=== PATIENT | male | born 1995 | race African-American/Black ===

== ENCOUNTER 2022-08-15 15:17 | Emergency (ER) | payer MEDICAID, OTHER ==
[~2022-08-15] VITALS: Ht 170.2 cm; Wt 67.1 kg
[2022-08-15 15:54] VITALS: BP 118/81
== END 2022-08-15 16:14 | disposition home or self-care (01) ==
LOC: ER 15:17
DX: S61.217A Laceration without foreign body of left little finger without damage to nail, initial encounter (principal); W26.0XXA Contact with knife, initial encounter; Y93.89 Activity, other specified; Y92.89 Other specified places as the place of occurrence of the external cause; Y99.8 Other external cause status
CPT/HCPCS: 12002; 99282; J2001

== ENCOUNTER 2022-09-03 21:09 | Emergency (ER) | payer MEDICAID, OTHER ==
[~2022-09-03] VITALS: Ht 167.6 cm; Wt 70.3 kg
[2022-09-03 21:24] VITALS: BP 141/91
[2022-09-03] MEDS ORDERED: SODIUM CHLORIDE 0.9% 1,000 ML IV ONE (22:00)
[2022-09-03] MEDS ORDERED: LIDOCAINE 1% HCL (LOCAL ANESTH.) INJ 20ML MDV ID ONE (22:00)
[2022-09-03] MEDS ORDERED: ONDANSETRON HCL 4 MG/2 ML VIAL IV ONE (22:00)
[2022-09-03] MEDS ORDERED: HYDROmorphone HCL 2 MG/ML VL/or syr IV ONE (22:00)
[2022-09-03] MEDS ORDERED: ceFAZolin 1GM/50ML 50 ML IV ONE (22:00)
[2022-09-03] MEDS ORDERED: TETANUS-DIPTH-ACEL PERTUSSIS 0.5ML SYR Tdap IM ONE (22:00)
[2022-09-03] MEDS ORDERED: ceFAZolin 1GM VL ONE (23:14)
[2022-09-03] MEDS ORDERED: ceFAZolin IM 1GM/2.5ML STERILE WATER IM ONE (23:15)
== END 2022-09-03 23:54 | disposition home or self-care (01) ==
LOC: ER 21:09 → EDBD 21:09 → EDUNIT# 21:09 → ER 23:09
DX: S41.001A Unspecified open wound of right shoulder, initial encounter (principal); X99.8XXA Assault by other sharp object, initial encounter; Y93.89 Activity, other specified; Y92.89 Other specified places as the place of occurrence of the external cause; Y99.8 Other external cause status
CPT/HCPCS: 12002; 71260; 73200; 74177; 90471; 90715; 99285; J0690; J1170; Q9967; J2001; J2405

== ENCOUNTER 2022-09-22 16:10 | Emergency (ER) | payer MEDICAID ==
[~2022-09-22] VITALS: Ht 172.7 cm; Wt 65.6 kg
[2022-09-22 16:21] VITALS: BP 132/86
== END 2022-09-22 16:59 | disposition home or self-care (01) ==
LOC: ER 16:10
DX: S41.011D Laceration without foreign body of right shoulder, subsequent encounter (principal); X58.XXXD Exposure to other specified factors, subsequent encounter